=== PATIENT | female | born 1980 | race Two or more races ===

== ENCOUNTER 2017-03-22 01:27 | Inpatient (IN) | payer SELFPAY ==
[~2017-03-22] VITALS: Ht 165.1 cm; Wt 56.7 kg
[2017-03-22] MEDS ORDERED: MORPHINE SULFATE 4 MG/ML CPJ (NOT FOR IM USE) IV STA (02:56)
[2017-03-22] MEDS ORDERED: FAMOTIDINE 20MG/2ML VIAL IV STA (02:56)
[2017-03-22] MEDS ORDERED: ONDANSETRON HCL 4MG/2ML VIAL IV STA (02:56)
[2017-03-22] MEDS ORDERED: SODIUM CHLORIDE 0.9% 1,000 ML IV ONE (02:56)
[2017-03-22 03:38] LABS: INR 1.1; PROTHROMBIN TIME 11.7 sec (9.4-11.6)
[2017-03-22 03:41] LABS: HEMOGLOBIN. 13.8 g/dL (12.0-16.0); MEAN CORPUSCULAR VOLUME 85.3 fL (81.0-99.0); MEAN PLATELET VOLUME 7.4 fl (7.4-10.4); PLATELET 165 x1000/uL (130-400); RED BLOOD CELL COUNT 4.92 mill/uL (4.2-5.4); RED CELL DISTRIBUTION WIDTH 14.5 % (11.6-14.6)
[2017-03-22 03:44] LABS: CARBON DIOXIDE 26 mEq/L (21-32); CHLORIDE 108 mEq/L (98-107); ETHANOL BLOOD < 10 mg/dL
[2017-03-22] MEDS ORDERED: SODIUM CHLORIDE 0.9% 1,000 ML IV SCH (04:35)
[2017-03-22 04:55] LABS: CLARITY URINE CLEAR (CLEAR); COLOR URINE YELLOW (YELLOW); GLUCOSE URINE TRACE (NEGATIVE); KETONES URINE 1+ (NEGATIVE); LEUKOCYTE ESTERASE URINE TRACE (NEGATIVE); NITRITE URINE NEGATIVE (NEGATIVE); OCCULT BLOOD URINE NEGATIVE (NEGATIVE); PH URINE 6.5 (4.5-8.0); PROTEIN URINE TRACE (NEGATIVE); UROBILINOGEN URINE 0.2 E.U./dL (0.2-1.0)
[2017-03-22 05:07] LABS: *AMPHETAMINES SCREEN URINE NEGATIVE (NEGATIVE); *BARBITURATES SCREEN URINE NEGATIVE (NEGATIVE); *BENZODIAZEPINES SCREEN URINE NEGATIVE (NEGATIVE); METHADONE URINE SCREEN NEGATIVE (NEGATIVE); OPIATES URINE SCREEN NEGATIVE (NEGATIVE); PHENCYCLIDINE URINE SCREEN NEGATIVE (NEGATIVE)
[2017-03-22 05:10] LABS: PLATELET ESTIMATE NORMAL
[2017-03-22 05:29] LABS: *COCAINE SCREEN URINE PRESUMTIVE POSITIVE (NEGATIVE); CANNABINOID URINE SCREEN PRESUMTIVE POSITIVE (NEGATIVE)
[2017-03-22] MEDS ORDERED: CEFOXITIN SODIUM 1 G in DEXTROSE 5% WATER 50 ML IV ONE (05:30)
[2017-03-22] MEDS ORDERED: MORPHINE SULFATE 4 MG/ML CPJ (NOT FOR IM USE) IV PRN (08:05)
[2017-03-22 09:51] VITALS: BP 150/94
[2017-03-22 10:14] VITALS: BP 150/94
[2017-03-22 12:00] VITALS: BP 154/89
[2017-03-22] MEDS ORDERED: MAGNESIUM/ALUMINUM HYDROXIDE/SIMETHICONE 30ML UDC PO PRN (12:00)
[2017-03-22] MEDS ORDERED: DOCUSATE SODIUM 100MG CAPSULE PO PRN (12:00)
[2017-03-22] MEDS ORDERED: ACETAMINOPHEN 325MG TABLET PO PRN (12:00)
[2017-03-22] MEDS ORDERED: PIPERACILLIN/TAZ 3.375G PREMIX 50 ML IV SCH (12:00)
[2017-03-22] MEDS: HYDROMORPHONE HCL/PF 2MG/ML CPJ IV PRN ×3 (12:44→20:59)
[2017-03-22] MEDS ORDERED: IOHEXOL-300 100 ML BOTTLE ONE (14:26)
[2017-03-22] MEDS ORDERED: SODIUM CHLORIDE 0.9% 10ML VIAL ONE (14:26)
[2017-03-22] MEDS ORDERED: DIATR MEGLU/DIATRIZOATE SOLN 120ML ONE (14:26)
[2017-03-22] MEDS: PIPERACILLIN/TAZ 3.375G PREMIX 50 ML IV SCH ×2 (15:23→21:01)
[2017-03-22] MEDS: CLONIDINE 0.1MG TABLET PO PRN (17:15)
[2017-03-22] MEDS: AMLODIPINE 10MG TABLET PO SCH (18:43)
[2017-03-22 20:00] VITALS: BP 204/96
[2017-03-22] MEDS: ONDANSETRON HCL 4MG/2ML VIAL IV PRN (20:58)
[2017-03-22] MEDS: HYDRALAZINE HCL 25MG TABLET PO SCH (21:01)
[2017-03-23] VITALS: BP 184/97
[2017-03-23] MEDS: CLONIDINE 0.1MG TABLET PO PRN (01:28)
[2017-03-23 04:00] VITALS: BP 165/109
[2017-03-23] MEDS: HYDROMORPHONE HCL/PF 2MG/ML CPJ IV PRN ×5 (05:08→20:44)
[2017-03-23] MEDS: PIPERACILLIN/TAZ 3.375G PREMIX 50 ML IV SCH ×3 (05:08→21:47)
[2017-03-23] MEDS: HYDRALAZINE HCL 25MG TABLET PO SCH ×3 (05:08→21:50)
[2017-03-23] MEDS: ONDANSETRON HCL 4MG/2ML VIAL IV PRN (05:12)
[2017-03-23 07:51] LABS: HEMATOCRIT. 39.5 % (36.0-48.0); HEMOGLOBIN. 13.1 g/dL (12.0-16.0); MEAN CORPUSCULAR HEMOGLOBIN 28.2 pg (28.0-32.0); MEAN CORPUSCULAR VOLUME 85.3 fL (81.0-99.0); MEAN PLATELET VOLUME 7.9 fl (7.4-10.4); PLATELET 139 x1000/uL (130-400); RED BLOOD CELL COUNT 4.63 mill/uL (4.2-5.4)
[2017-03-23 08:00] VITALS: BP 148/94
[2017-03-23] MEDS: AMLODIPINE 10MG TABLET PO SCH (08:21)
[2017-03-23 08:46] LABS: CARBON DIOXIDE 24 mEq/L (21-32); CHLORIDE 103 mEq/L (98-107)
[2017-03-23 10:06] LABS: PLATELET ESTIMATE NORMAL
[2017-03-23] MEDS ORDERED: POTASSIUM CHLORIDE 20MEQ TABLET SR PO SCH (11:15)
[2017-03-23 12:00] VITALS: BP 136/74
[2017-03-23 20:00] VITALS: BP 141/90
[2017-03-24] VITALS (8 sets, daily range): BP systolic 151–190; BP diastolic 86–109
[2017-03-24] MEDS: HYDROMORPHONE HCL/PF 2MG/ML CPJ IV PRN ×6 (01:49→21:41)
[2017-03-24] MEDS: HYDRALAZINE HCL 25MG TABLET PO SCH ×3 (05:00→21:40)
[2017-03-24] MEDS: PIPERACILLIN/TAZ 3.375G PREMIX 50 ML IV SCH ×3 (05:00→21:41)
[2017-03-24 07:23] LABS: HEMATOCRIT. 41.5 % (36.0-48.0); HEMOGLOBIN. 13.9 g/dL (12.0-16.0); MEAN CORPUSCULAR HEMOGLOBIN 28.3 pg (28.0-32.0); MEAN CORPUSCULAR VOLUME 84.9 fL (81.0-99.0); MEAN PLATELET VOLUME 7.9 fl (7.4-10.4); PLATELET 150 x1000/uL (130-400); RED BLOOD CELL COUNT 4.89 mill/uL (4.2-5.4); RED CELL DISTRIBUTION WIDTH 13.9 % (11.6-14.6)
[2017-03-24 08:08] LABS: CARBON DIOXIDE 25 mEq/L (21-32); CHLORIDE 99 mEq/L (98-107)
[2017-03-24] MEDS ORDERED: POTASSIUM CHLORIDE 20MEQ TABLET SR PO SCH (08:30)
[2017-03-24] MEDS: AMLODIPINE 10MG TABLET PO SCH (09:45)
[2017-03-24 10:20] LABS: PLATELET ESTIMATE NORMAL
[2017-03-24] MEDS: CLONIDINE 0.1MG TABLET PO PRN (17:04)
[2017-03-25] VITALS (10 sets, daily range): BP systolic 137–167; BP diastolic 76–97
[2017-03-25] MEDS: HYDROMORPHONE HCL/PF 2MG/ML CPJ IV PRN ×6 (02:10→21:09)
[2017-03-25] MEDS: CLONIDINE 0.1MG TABLET PO PRN ×3 (02:12→16:02)
[2017-03-25] MEDS: HYDRALAZINE HCL 25MG TABLET PO SCH ×3 (06:30→21:08)
[2017-03-25] MEDS: PIPERACILLIN/TAZ 3.375G PREMIX 50 ML IV SCH ×3 (06:31→21:08)
[2017-03-25] MEDS: AMLODIPINE 10MG TABLET PO SCH (08:43)
[2017-03-25] MEDS ORDERED: TRAM50TA73 PO (09:56)
[2017-03-25] MEDS ORDERED: SULF1TAB48 PO (09:56)
[2017-03-26] MEDS: HYDROMORPHONE HCL/PF 2MG/ML CPJ IV PRN ×3 (01:31→10:07)
[2017-03-26 04:43] VITALS: BP 166/100
[2017-03-26] MEDS: PIPERACILLIN/TAZ 3.375G PREMIX 50 ML IV SCH (05:02)
[2017-03-26] MEDS: HYDRALAZINE HCL 25MG TABLET PO SCH ×2 (05:02→16:56)
[2017-03-26 08:00] VITALS: BP 160/84
[2017-03-26] MEDS: AMLODIPINE 10MG TABLET PO SCH (08:37)
[2017-03-26 12:00] VITALS: BP 154/72
[2017-03-26 16:00] VITALS: BP 152/73
[2017-03-26] MEDS: CLONIDINE 0.1MG TABLET PO PRN (17:58)
== END 2017-03-26 18:30 | disposition home or self-care (01) | DRG 251 ==
LOC: ER 01:28 → 8WST 04:39 → EDBEDREQ 04:43 → ENRESERV 07:14
PROVIDERS: ADMIT Hospitalist; ATTEND Hospitalist
DX: R10.9 Unspecified abdominal pain (principal); I10 Essential (primary) hypertension; N70.93 Salpingitis and oophoritis, unspecified; R11.2 Nausea with vomiting, unspecified; F12.90 Cannabis use, unspecified, uncomplicated; F17.200 Nicotine dependence, unspecified, uncomplicated; I16.0 Hypertensive urgency; Z88.2 Allergy status to sulfonamides; Z88.1 Allergy status to other antibiotic agents; Z88.8 Allergy status to other drugs, medicaments and biological substances
CPT/HCPCS: 36415; 71010; 74177; 76830; 76856; 80053; 80305; 81001; 81025; 83605; 83690; 83735; 85025; 85610; 87040; 96361; 96365; 96375; 96376; 99285; A4216; G0482; J0694; J1170; J2270; J2405; J2543; J3490; J7030; J7040; J7060; Q9963; Q9967

== ENCOUNTER 2020-02-18 07:05 | Emergency (ER) | payer MEDICAID, OTHER ==
[~2020-02-18] VITALS: Ht 165.1 cm; Wt 62.0 kg
[~2020-02-18 07:05] MED LIST: TRAM50TA94 PO
[2020-02-18] MEDS ORDERED: SODIUM CHLORIDE 0.9% 1,000 ML IV ONE (07:44)
[2020-02-18] MEDS ORDERED: ONDANSETRON HCL 4MG/2ML INJ IV STA (07:44)
[2020-02-18] MEDS ORDERED: MORPHINE SULFATE 4 MG/ML CPJ (NOT FOR IM USE) IV STA (07:44)
[2020-02-18 08:41] LABS: BASOPHILS % 0.6 % (0.0-2.0); EOSINOPHILS % 0.2 % (0.0-5.0); HEMATOCRIT. 35.8 % (36.0-48.0); HEMOGLOBIN. 11.9 g/dL (12.0-16.0); LYMPHOCYTES % 10.8 % (20.0-50.0); MEAN CORPUSCULAR HEMOGLOBIN 28.1 pg (28.0-32.0); MEAN CORPUSCULAR VOLUME 84.5 fL (81.0-99.0); MEAN PLATELET VOLUME 8.4 fl (7.4-10.4); MONOCYTES % 5.5 % (2.0-8.0); NEUTROPHILS % 82.9 % (40.0-76.0); PLATELET 183 x1000/uL (130-400); RED BLOOD CELL COUNT 4.23 mill/uL (4.2-5.4); RED CELL DISTRIBUTION WIDTH 16.5 % (11.6-14.6)
[2020-02-18 08:42] LABS: CLARITY URINE CLEAR (CLEAR); COLOR URINE YELLOW (YELLOW); KETONES URINE NEGATIVE (NEGATIVE); LEUKOCYTE ESTERASE URINE NEGATIVE (NEGATIVE); NITRITE URINE NEGATIVE (NEGATIVE); OCCULT BLOOD URINE NEGATIVE (NEGATIVE); PH URINE >=9.0 (4.5-8.0); PROTEIN URINE 2+ (NEGATIVE); SPECIFIC GRAVITY URINE 1.021 (1.005-1.030); UROBILINOGEN URINE 0.2 E.U./dL (0.2-1.0)
[2020-02-18 08:47] LABS: CHLORIDE 108 mEq/L (98-107)
[2020-02-18 08:50] LABS: ETHANOL BLOOD < 10 mg/dL
[2020-02-18 09:03] LABS: *BARBITURATES SCREEN URINE NEGATIVE (NEGATIVE)
[2020-02-18 09:04] LABS: *BENZODIAZEPINES SCREEN URINE NEGATIVE (NEGATIVE); METHADONE URINE SCREEN NEGATIVE (NEGATIVE); OPIATES URINE SCREEN NEGATIVE (NEGATIVE); PHENCYCLIDINE URINE SCREEN NEGATIVE (NEGATIVE)
[2020-02-18 09:05] LABS: *AMPHETAMINES SCREEN URINE NEGATIVE (NEGATIVE)
[2020-02-18 09:10] LABS: *COCAINE SCREEN URINE PRESUMTIVE POSITIVE (NEGATIVE); CANNABINOID URINE SCREEN PRESUMTIVE POSITIVE (NEGATIVE)
[2020-02-18 09:14] LABS: HCG SCREEN NEGATIVE
[2020-02-18] MEDS ORDERED: LORAZEPAM 2MG/ML CPJ IV ONE (10:00)
[2020-02-18 11:56] VITALS: BP 160/100
== END 2020-02-18 12:17 | disposition home or self-care (01) ==
LOC: ER 07:05
DX: R10.9 Unspecified abdominal pain (principal); R11.10 Vomiting, unspecified; I16.0 Hypertensive urgency; T40.5X1A Poisoning by cocaine, accidental (unintentional), initial encounter; I10 Essential (primary) hypertension; F17.200 Nicotine dependence, unspecified, uncomplicated; Y92.9 Unspecified place or not applicable; Z88.2 Allergy status to sulfonamides; Z88.3 Allergy status to other anti-infective agents; Z90.710 Acquired absence of both cervix and uterus
CPT/HCPCS: 36415; 74176; 80053; 80305; 80320; 81003; 81025; 83690; 84703; 85025; 93005; 96361; 96374; 96375; 99285; J2060; J2270; J2405; J7030; G0480